=== PATIENT | male | born 1960 | race Caucasian/White ===

== ENCOUNTER 2016-06-21 14:10 | Inpatient (IN) | payer OTHER ==
[~2016-06-21] VITALS: Ht 180.3 cm; Wt 107.0 kg
[2016-06-21 16:33] VITALS: Ht 180.3 cm; Wt 107.0 kg
[2016-06-21 17:09] VITALS: PULSE 71
[2016-06-21] MEDS ORDERED: morphine 2 MG INJ IV PRN (19:00)
[2016-06-21] MEDS ORDERED: ONDANSETRON 4 MG INJ IV PRN (19:00)
[2016-06-21] MEDS ORDERED: HYDROCODONE/APAP (5/325) TAB PO PRN (19:00)
[2016-06-21] MEDS ORDERED: ZOLPIDEM 5 MG TAB PO PRN (19:00)
[2016-06-21] MEDS ORDERED: DOCUSATE SODIUM 100 MG CAP PO PRN (19:00)
[2016-06-21] MEDS ORDERED: ACETAMINOPHEN 325 MG TAB PO PRN (19:00)
[2016-06-21] MEDS ORDERED: NACL 0.9% 3 ML SYG IV SCH (19:00)
[2016-06-21] MEDS ORDERED: NITROGLYCERIN (SL) 0.4 MG TAB SL PRN (19:00)
[2016-06-21 19:43] VITALS: BP 155/86; RESP 20
--- NOTE | 2016-06-21 19:57 | HP ---
DATE OF ADMISSION: 06/21/2016 CHIEF COMPLAINT: Chest pain. HISTORY OF PRESENT ILLNESS: The patient is a 55-year-old male with no medical history. The patient presented with chest pain for the past 4 days. The patient states the pain is intermittent and shore s describe it as a pressure-like sensation. He has no history of any heart disease. No diabetes or prior history of chest pain. The patient denies any GI issues. PAST MEDICAL HISTORY: Negative. PAST SURGICAL HISTORY: Denies. HOME MEDICATIONS: None. ALLERGIES: NO KNOWN DRUG ALLERGIES. FAMILY HISTORY: Prostate cancer. SOCIAL HISTORY: Denies any alcohol, tobacco, or drug abuse. REVIEW OF SYSTEMS: A 12-point review of systems negative except that in the HPI. PHYSICAL EXAMINATION: VITAL SIGNS: Stable. LABORATORIES: Reportedly stable from outside hospital with negative troponin. DIAGNOSTICS: EKG showed no signs of ischemia. ASSESSMENT AND PLAN: 1. Chest pain. The patient has no risk factors except for age and obesity. The patient may have h ypertension. We will check an A1c and lipid panel. Get cardiology consult. Will trend troponins. Will treat with aspirin and Coreg. Will give nitroglycerin p.r.n. 2. Possible history of hypertension. We will monitor on telemetry. 3. Prophylaxis. Lovenox. Dictated By: LINDA GUAJARDO MD BS/NTS Conf#: [id number] DID#: [id number] CC: TONYA MARCOS MD;*End*
[2016-06-21 20:11] VITALS: PULSE 69
[2016-06-21 23:41] VITALS: BP 123/65; RESP 20
[2016-06-22] VITALS (7 sets, daily range): BP systolic 126–134; BP diastolic 61–77; PULSE 63–74; RESP 18–20
[2016-06-22 06:50] LABS: ADD SCAN DIFF NO
[2016-06-22 06:58] LABS: BASOPHILS % 0.4 % (0.0-2.0); EOSINOPHILS # 0.2 10^3/ul (0.0-0.5); EOSINOPHILS % 1.9 % (0.0-7.0); HEMATOCRIT 47.3 % (42.0-52.0); HEMOGLOBIN 15.2 g/dl (14.0-18.0); LYMPHOCYTES # 2.6 10^3/ul (0.8-2.9); LYMPHOCYTES % 32.8 % (15.0-51.0); MEAN CORPUSCULAR HGB CONC 32.1 g/dl (32.0-37.0); MEAN CORPUSCULAR VOLUME 87.1 fl (82.0-101.0); MEAN PLATELET VOLUME 11.4 fl (7.4-10.4); MONOCYTE # 0.6 10^3/ul (0.3-0.9); MONOCYTES % 7.9 % (0.0-11.0); NEUTROPHIL # 4.4 10^3/ul (1.6-7.5); NEUTROPHILS % 56.5 % (39.0-77.0); PLATELET COUNT 172 10^3/UL (140-415); RED BLOOD COUNT 5.43 10^6/ul (4.70-6.10); RED CELL DISTRIBUTION WIDTH 12.7 % (11.5-14.5); WHITE BLOOD COUNT 7.8 10^3/ul (4.8-10.8)
[2016-06-22 07:30] LABS: POTASSIUM 4.5 mmol/L (3.5-5.1)
[2016-06-22 07:33] LABS: CREATININE 0.96 mg/dl (0.61-1.24)
[2016-06-22 07:34] LABS: CALCIUM 9.1 mg/dl (8.4-10.2); CHOL/HDL RATIO 6.3 RATIO
[2016-06-22] MEDS ORDERED: ENOXAPARIN 40 MG/0.4 ML SYG SC SCH (09:00)
--- NOTE | 2016-06-22 10:07 | CONS ---
Date/Time of Note Date/Time of Note DATE: 06/22/16 TIME: 09:58 Assessment/Plan Assessment/Plan Chief Complaint/Hosp Course "Fluttering in chest": Symptoms lasted 1-2 seconds and could have been from PAC/ PVC or completely noncardiac. No chest pain during episode and no exertional symptoms. I do not think a stress test is warranted in this pt with essentially no symptoms and minimal risk profile. The chance for a false positive would be high and could lead to unnecessary invasive testing. Outpt follow-up and if recurrence of symptoms, a Holter or if any angina, a stress test could be indicated. I discussed this with the pt and he is comfortable to be discharged. HTN: likely needs to start meds as per his recollection, his BP is ~150s mostly -ok for d/c from my perspective -can f/u as outpt -start low dose amlodipine 5mg or other BP med of choice Problems: Consultation Date/Type/Reason Admit Date/Time Jun 21, 2016 at 15:55 Date of Consultation: Jun 22, 2016 Type of Consultation: Cardiology Reason for Consultation Chest pain Referring Provider: LINDA GUAJARDO Hx of Present Illness 55 yo M with a h/o borderline HTN not on meds who presented with a fluttering sensation in his chest. The pt notes that 6 days ago he woke up with what he describes as fluttering in his chest that lasted 1-2 seconds. He did not make much of it and since he had other things to do he ignored it. He did not have any recurrence of the sensation nor has it happened before but he decided to come in for evaluation. He was [facility] and transferred here for workup. He does not exercise much but he is able to do daily activities including mowing his lawn without any sensation of chest pain or SOB. He does not smoke and he denies a family h/o CAD. He notes that his BP is as high as 150 at home but he has been having outpt follow-up and his BP has been low 140s in the clinic so no meds have been started. per HPI Past Medical History borderline HTN Social History Smoking Status: Never smoker Exam/Review of Systems Vital Signs Vitals Vital Signs Date Time Temp Pulse Resp B/P Pulse Ox O2 Delivery O2 Flow Rate FiO2 06/22/16 08:22 74 06/22/16 07:55 98.2 20 134/74 98 Intake and Output 06/21/16 06/21/16 06/22/16 15:00 23:00 07:00 Intake Total 150 ml Balance 150 ml Exam Constitutional: alert, oriented Psych: nl mood/affect, no complaints Head: atraumatic, normocephalic Neck: No jvd Respiratory: clear to auscultation, No crackles/rales Cardiovascular: regular rate and rhythm, No edema, No systolic murmur Gastrointestinal: non-tender, soft Neurological: nl mental status, nl speech Skin: No rash or lesions Results EKG: sinus, no ST changes Result Diagram: 06/22/1660906/22/16609 Results 24 hrs Laboratory Tests Test 06/22/16 00:15 06/22/16 06:10 Troponin I < 0.012 < 0.012 White Blood Count 7.8 Red Blood Count 5.43 Hemoglobin 15.2 Hematocrit 47.3 Mean Corpuscular Volume 87.1 Mean Corpuscular Hemoglobin 28.0 L Mean Corpuscular Hemoglobin Concent 32.1 Red Cell Distribution Width 12.7 Platelet Count 172 Mean Platelet Volume 11.4 H Neutrophils % 56.5 Lymphocytes % 32.8 Monocytes % 7.9 Eosinophils % 1.9 Basophils % 0.4 Nucleated Red Blood Cells % 0.0 Neutrophils # 4.4 Lymphocytes # 2.6 Monocytes # 0.6 Eosinophils # 0.2 Basophils # 0.0 Nucleated Red Blood Cells # 0.0 Sodium Level 142 Potassium Level 4.5 Chloride Level 105 Carbon Dioxide Level 25 Anion Gap 17 H Blood Urea Nitrogen 16 Creatinine 0.96 Glucose Level 104 Hemoglobin A1c 5.2 Calcium Level 9.1 Phosphorus Level 4.0 Magnesium Level 2.0 Triglycerides Level 184 H Cholesterol Level 145 LDL Cholesterol, Calculated 85 HDL Cholesterol 23 L Cholesterol/HDL Ratio 6.3 Medications Medications Current Medications Aspirin (Aspirin) 81 mg DAILY PO ; Start 06/23/16 at 09:00 Carvedilol (Coreg) 6.25 mg BID PO Last administered on 06/21/16t 20:58; Admin Dose 6.25 MG; Start 06/21/16 at 21:00 Nitroglycerin (Nitroglycerin (Sl Tab) 0.4 Mg) 1 tab Q5M PRN SL CHEST PAIN; Start 06/21/16 at 19:00 Ondansetron HCl (Zofran Inj) 4 mg Q6H PRN IV NAUSEA AND/OR VOMITING; Start 12/28 at 19:00 Acetaminophen (Tylenol Tab) 650 mg Q6H PRN PO PAIN LEVEL 1-3 OR FEVER; Start at 19:00 Acetaminophen/ Hydrocodone Bitart (Jber (5/325)) 1 tab Q6H PRN PO MODERATE PAIN LEVEL 4-6; Start 06/21/16 at 19:00 Morphine Sulfate (morphine) 2 mg Q4H PRN IV SEVERE PAIN LEVEL 7-10; Start 06/21 at 19:00 Docusate Sodium (Colace) 100 mg Q12H PRN PO CONSTIPATION; Start 06/21/16 at 19: 00 Zolpidem Tartrate (Ambien) 5 mg QHS PRN PO SLEEP; Start 06/21/16 at 19:00 Enoxaparin Sodium (Lovenox) 40 mg DAILY SC ; Start 06/22/16 at 09:00 NOHEMI GONZALES Jun 22, 2016 10:07
[2016-06-22] MEDS ORDERED: AMLO5TAB4 PO (13:52)
--- NOTE | 2016-06-22 13:52 | PDOCDIS ---
Discharge Instructions CONDITION Patient Condition: Good HOME CARE INSTRUCTIONS: Diet Instructions: Reduced Calorie ACTIVITY: Activity Restrictions: No Restrictions FOLLOW UP/APPOINTMENTS Appointments F/U WITH YOUR PCP IN 1-2 WEEKS LINDA GUAJARDO Jun 22, 2016 13:52
--- NOTE | 2016-06-22 16:22 | RADRPT ---
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 Physician: LINDA GUAJARDO Quality: Good Procedures: Transthoracic echocardiogram with complete 2D, M-Mode, and doppler examination. Indications: Chest Pain. 2D/M Mode Doppler Measurement Value Normal Ranges Measurement Value Normal Ranges LVIDd 2D 4.8 3.5 - 5.6 cm AV Peak Mikey 1.4 m/sec LVIDs 2D 2.5 2.1 - 4.1 cm AV Peak PG 8.0 mmHg FS 2D 48.9 % LVOT Peak Mikey 1.2 m/sec LVPWd 2D 0.9 0.6 - 1.1 cm LVOT Peak PG 6.0 mmHg IVSd 2D 0.9 0.6 - 1.1 cm MV E Peak Mikey 0.7 m/sec IVS/LVPW 2D 1.0 MV A Peak Mikey 0.8 m/sec AoR Diam 2D 2.6 2.0 - 3.7 cm MV E/A 0.9 LA/Ao 2D 1 0 - 1 MV Decel Time 204 msec EDV 2D 110.0 cm3 MV E/A 0.9 ESV 2D 14.7 cm3 TR Peak Mikey 2.0 m/sec LA Dimen 2D 3.6 2.3 - 4.0 cm TR Peak PG 17.0 mmHg RVSP 25.0 mmHg Findings Left Ventricle: Normal left ventricular systolic function. Normal left ventricular cavity size. Normal left ventricular wall thickness. Ejection fraction is visually estimated at 65 %. Tissue Doppler/Mitral Doppler indices are within normal limits. Right Ventricle: Normal right ventricular size. Normal right ventricular systolic function. Left Atrium: The left atrium is normal in size. Right Atrium: The right atrium is normal in size. Mitral Valve: Normal appearance and function of the mitral valve with trace physiologic regurgitation. Aortic Valve: Normal appearance of the aortic valve. No significant aortic stenosis or insufficiency. Tricuspid Valve: Normal appearance of the tricuspid valve. Estimated peak PA systolic pressure 20 mmHg. There is trace tricuspid regurgitation. Pulmonic Valve: Normal pulmonic valve appearance. Pericardium: Normal pericardium with no significant pericardial effusion. Aorta: Normal aortic root. IVC: Normal size and normal respiratory collapse consistent with normal right atrial pressure. Conclusions 1.Normal left ventricular systolic function. Normal left ventricular cavity size. Normal left ventricular wall thickness. Ejection fraction is visually estimated at 65 %. Tissue Doppler/Mitral Doppler indices are within normal limits. 2.No significant valvular stenosis or regurgitation seen. 3.Estimated peak PA systolic pressure 20 mmHg based on RA pressure of 3 mmHg. Electronically Signed By: Bill Arshad 22-Jun-2016 16:21:17 -0700 Patient Name: SHAYNE PERES Study Date: 22-Jun-[id number]
--- NOTE | 2016-06-22 18:52 | DS ---
DATE OF ADMISSION: 06/21/2016 DATE OF DISCHARGE: 06/22/2016 DISCHARGE DIAGNOSES: 1. Chest pain/fluttering and no abnormalities found on tele. The patient's echo was normal. Meena dubon was cleared for discharge by cardiology. 2. Hypertension. The patient is on Norvasc. HOSPITAL COURSE: The patient is a 55-year-old male with a possible history of hypertension. Panchito mcgrath presented with chest pain and a fluttering sensation in his chest. The patient was seen by cardio logy. Patient's echo was within normal limits. Troponins are negative x3 and patient's A1c is 5.2. Cholesterol was within normal limits. The patient's blood pressure was slightly elevated and karla mmendation per cardiology is for patient was started on Norvasc. No stress test was felt to be vignesh cated at this time and no further diagnostics were recommended per cardiology. The patient was ches t pain free. There were no issues on telemetry overnight. The patient was felt to be stable for [facility]. On the day of discharge, the patient's vitals, labs, and physical exam were stable. He lane d no acute complaints. Questions were answered. CONDITION ON DISCHARGE: Stable. DISPOSITION: To home. MEDICATIONS: The patient was given a prescription for Norvasc 5 mg p.o. daily. The patient had no reported home medications. Once again, the patient was given just a prescription for Norvasc 5 mg p .o. daily and he has no reported home medications. FOLLOWUP: The patient is to follow up with his PCP in 1 to 2 weeks. Greater than 30 minutes was spent coordinating discharge of patient. Dictated By: LINDA GUAJARDO MD BS/ERROL Conf#: [id number] DID#: [id number]
[2016-06-23] MEDS ORDERED: ASPIRIN 81 MG TAB PO SCH (09:00)
== END 2016-06-22 15:48 | disposition home or self-care (01) | DRG 313 ==
LOC: MS4 15:55
PROVIDERS: ADMIT Family Medicine; ATTEND Family Medicine
DX: R07.9 Chest pain, unspecified (principal); I10 Essential (primary) hypertension; E66.9 Obesity, unspecified; Z68.32 Body mass index [BMI] 32.0-32.9, adult
CPT/HCPCS: 80048; 80061; 83036; 83735; 84100; 84484; 85025; 93306; J1650